=== PATIENT | male | born 2000 | race Caucasian/White ===

== ENCOUNTER 2019-05-27 19:01 | Emergency (ER) | payer OTHER ==
[2019-05-27 22:29] LABS: Hematocrit 40 % (42-52); Hemoglobin 13.6 g/dL (14.0-18.0); Mean Corpuscular HGB Conc 34 g/dL (31-36); Mean Corpuscular Hemoglobin 30 pg (27-31); Mean Corpuscular Volume 88 fL (80-94); Mean Platelet Volume 8.3 fL (7.4-10.4); Platelet Count 239 10^3/uL (150-450); Red Blood Count 4.59 10^6 /uL (4.18-5.48); Red Cell Distribution Width 13 % (10-15)
[2019-05-27 22:44] LABS: Albumin 4.7 g/dL (3.2-5.2); Albumin/Globulin Ratio 1.4 (1-3); BUN/Creatinine Ratio 14.9 (8-20); C Reactive Protein 28.53 mg/L (<8.01); Calcium 9.9 mg/dL (8.6-10.3); EGFR African American 125.1 (>60); EGFR Non-African American 103.4 (>60); Globulin 3.4 g/dL (2-4); Magnesium 2.2 mg/dL (1.9-2.7); Potassium 4.2 mmol/L (3.5-5.0); Total Bilirubin 0.6 mg/dL (0.2-1.0); Total Protein 8.1 g/dL (6.4-8.9)
[2019-05-27 22:47] LABS: ABS Lymphocytes 2.5 10^3/ul (1.0-4.8); ABS Monocytes 1.7 10^3/ul (0-0.8); ABS Neutrophils 11.8 10^3/ul (1.5-7.7); Eosinophil % 0.2 %; Lymphocyte % 15.4 %
[2019-05-27 22:51] LABS: Rapid Strep Molecular Negative (Negative)
[2019-05-27 23:05] LABS: TSH (Thyroid Stimulating Horm) 1.65 mcIU/mL (0.34-5.60)
[2019-05-27] MEDS ORDERED: Ibuprofen TAB* 600 MG PO ONE (23:11)
--- NOTE | 2019-05-27 23:38 | ED ---
Complex/Multi-Sys Presentation - HPI Summary HPI Summary: 18-year-old male presents with fatigue today. He states that he has had no energy. He did have a fever. Admits to sore throat. Has history of sinus infections and is waiting for ENT to get cultures back to start on antibiotics. He admits to worsening sinus pressure. denies any chest pain or shortness of breath. No cough. He states that all of his muscle aches. He did take some Tylenol prior to arrival. Denies any bowel pain. No rash. - History Of Current Complaint Chief Complaint: EDGeneral Time Seen by Provider: 05/27/19 21:56 - Allergies/Home Medications Allergies/Adverse Reactions: Allergies Allergy/AdvReac Type Severity Reaction Status Date / Time grass pollen Allergy Intermediate Eyes Verified 05/27/19 19:07 Itchy/Swollen/Red/Watery PMH/Surg Hx/FS Hx/Imm Hx Endocrine/Hematology History: Denies: Hx Diabetes Cardiovascular History: Denies: Hx Hypertension, Hx Pacemaker/ICD Sensory History: Denies: Hx Hearing Aid Psychiatric History: Denies: Hx Panic Disorder - Surgical History Surgery Procedure, Year, and Place: NOSE CAUTERIZATION A CHILD Infectious Disease History: No Infectious Disease History: Denies: Traveled Outside the [place] in Last 30 Days - Family History Known Family History: Positive: Non-Contributory - Social History Alcohol Use: Rare Substance Use Type: Reports: None Smoking Status (MU): Never Smoked Tobacco Review of Systems Positive: Fever, Chills, Fatigue Positive: Sore Throat, Nasal Discharge Negative: Chest Pain Negative: Shortness Of Breath, Cough Negative: Abdominal Pain Negative: dysuria All Other Systems Reviewed And Are Negative: Yes Physical Exam Triage Information Reviewed: Yes Vital Signs On Initial Exam: Initial Vitals Temp Pulse Resp BP Pulse Ox 100.1 F 78 15 123/74 100 05/27/19 19:04 05/27/19 19:04 05/27/19 19:04 05/27/19 19:04 05/27/19 19:04 Vital Signs Reviewed: Yes Appearance: Positive: Well-Appearing Skin: Positive: Warm, Dry Head/Face: Positive: Normal Head/Face Inspection Eyes: Positive: Normal, EOMI, PAULINO, Conjunctiva Clear ENT: Positive: Pharyngeal erythema, TMs normal, Tonsillar swelling, Sinus tenderness, Uvula midline, Other - soft palate symmetric. Negative: Tonsillar exudate, Trismus, Muffled voice Neck: Positive: Supple, Nontender, No Lymphadenopathy Respiratory/Lung Sounds: Positive: Clear to Auscultation, Breath Sounds Present Cardiovascular: Positive: Normal, RRR Abdomen Description: Positive: Nontender, Soft Bowel Sounds: Positive: Present Musculoskeletal: Positive: Normal Neurological: Positive: Normal Psychiatric: Positive: Normal Diagnostics - Vital Signs Vital Signs Temp Pulse Resp BP Pulse Ox 05/27/19 23:00 80 99 05/27/19 22:58 80 116/71 99 05/27/19 22:29 70 116/71 100 05/27/19 22:00 91 98 05/27/19 21:58 79 136/78 99 05/27/19 19:04 100.1 F 78 15 123/74 100 - Laboratory Lab Results: Lab Results 05/27/19 05/27/19 05/27/19 Range/Units 22:21 22:21 22:30 WBC 16.0 H (3.5-10.8) 10^3/uL RBC 4.59 (4.18-5.48) 10^6 /uL Hgb 13.6 L (14.0-18.0) g/dL Hct 40 L (42-52) % MCV 88 (80-94) fL MCH 30 (27-31) pg MCHC 34 (31-36) g/dL RDW 13 (10-15) % Plt Count 239 (150-450) 10^3/uL MPV 8.3 (7.4-10.4) fL Neut % (Auto) 73.4 % Lymph % (Auto) 15.4 % Hooker % (Auto) 10.8 % Eos % (Auto) 0.2 % Baso % (Auto) 0.2 % Absolute Neuts (auto) 11.8 H (1.5-7.7) 10^3/ul Absolute Lymphs (auto) 2.5 (1.0-4.8) 10^3/ul Absolute Monos (auto) 1.7 H (0-0.8) 10^3/ul Absolute Eos (auto) 0.0 (0-0.6) 10^3/ul Absolute Basos (auto) 0.0 (0-0.2) 10^3/ul Absolute Nucleated RBC 0.0 10^3/ul Nucleated RBC % 0.0 Sodium 136 (135-145) mmol/L Potassium 4.2 (3.5-5.0) mmol/L Chloride 102 (101-111) mmol/L Carbon Dioxide 29 (22-32) mmol/L Anion Gap 5 (2-11) mmol/L BUN 14 (6-24) mg/dL Creatinine 0.94 (0.67-1.17) mg/dL Est GFR ( Amer) 125.1 (>60) Est GFR (Non-Af Amer) 103.4 (>60) BUN/Creatinine Ratio 14.9 (8-20) Glucose 95 (70-100) mg/dL Calcium 9.9 (8.6-10.3) mg/dL Magnesium 2.2 (1.9-2.7) mg/dL Total Bilirubin 0.60 (0.2-1.0) mg/dL AST 10 L (13-39) U/L ALT 12 (7-52) U/L Alkaline Phosphatase 58 (34-104) U/L C-Reactive Protein 28.53 H (<8.01) mg/L Total Protein 8.1 (6.4-8.9) g/dL Albumin 4.7 (3.2-5.2) g/dL Globulin 3.4 (2-4) g/dL Albumin/Globulin Ratio 1.4 (1-3) TSH 1.65 (0.34-5.60) mcIU/mL Monoscreen Negative (Negative) Group A Strep Rapid Negative (Negative) Result Diagrams: 05/27/19 22:21 05/27/19 22:21 Lab Statement: Any lab studies that have been ordered have been reviewed, and results considered in the medical decision making process. - Radiology chest Radiology Interpretation Completed By: ED Physician Summary of Radiographic Findings: no pneumonia Complex Multi-Symp Course/Dx Course Of Treatment: 18-year-old male presents with fatigue today. He states that he has had no energy. He did have a fever. Admits to sore throat. Has history of sinus infections and is waiting for ENT to get cultures back to start on antibiotics. He admits to worsening sinus pressure. denies any chest pain or shortness of breath. No cough. He states that all of his muscle aches. He did take some Tylenol prior to arrival. Denies any bowel pain. No rash. On exam pharynx erythematous. Sinus tenderness noted. Lungs clear auscultation. Abdomen soft nontender. wbc 16. Monospot negative. Strep negative. Chest x-ray read by me as normal. Discussed likely a viral illness. patient declined IV fluids. With worsening sinus congestion and history sinus infection will start on Augmentin and ENT can change antibiotic as needed. told take Tylenol or ibuprofen for fever. Patient understands agrees with plan. - Diagnoses Differential Diagnoses/HQI/PQRI: Metabolic Abnormality, Other - mono, pneumonia Provider Diagnoses: Fatigue, Sinusitis, Fever Discharge - Sign-Out/Discharge Documenting (check all that apply): Patient Departure Patient Received Moderate/Deep Sedation with Procedure: No - Discharge Plan Condition: Good Disposition: HOME Prescriptions: Amoxicillin/Clavulanate TAB* [Augmentin TAB 875*] 875 mg PO BID #19 tab Patient Education Materials: Sinusitis (ED) Referrals: Chun Berman DO [Primary Care Provider] - Additional Instructions: Take antibiotic twice a day for 10 days Use saline spray in nose as much as needed take tyenlol or ibuprofen for fever every 6 hours for fever Follow up with primary care physician Return to ED with any new or worsening symptoms - Billing Disposition and Condition Condition: GOOD Disposition: Home
[2019-05-27] MEDS ORDERED: Amoxicillin/Clavulanate TAB* 500 MG PO ONE (23:43)
[2019-05-27] MEDS ORDERED: Amoxicillin/Clavulanate TAB* 875 MG PO ONE (23:44)
[2019-05-28 00:13] VITALS: BP 132/77
[2019-05-29 12:12] LABS: EBV Capsid Ag IgG Ab Positive (Negative); EBV Capsid Ag IgM Ab Negative (Negative); Epstein-Barr Nuclear Antigen Positive (Negative)
== END 2019-05-28 00:10 | disposition home or self-care (01) ==
LOC: ED 19:01
DX: R53.83 Other fatigue (principal); J32.9 Chronic sinusitis, unspecified; R50.9 Fever, unspecified; J02.9 Acute pharyngitis, unspecified
CPT/HCPCS: 36415; 71046; 80053; 83735; 84443; 85025; 86140; 86308; 86618; 86664; 86665; 87651; 99283; A9270-GY

== ENCOUNTER 2019-11-09 10:44 | Day surgery (SDC) | payer OTHER ==
[~2019-11-09 10:44] MED LIST: Buffered Lidocaine 1% SYRIN* 1 ML/SYRINGE INTRADERM ONE; Famotidine IV* 10 MG/ML 2 ML (20 mg) IV ONE; Lactated Ringers 1000 ML Bag* 1,000 ML IV SCH
[2019-11-09] MEDS ORDERED: Buffered Lidocaine 1% SYRIN* 1 ML/SYRINGE INTRADERM ONE (11:56)
[2019-11-09] MEDS ORDERED: Famotidine IV* 10 MG/ML 2 ML (20 mg) ONE (11:56)
[2019-11-09] MEDS ORDERED: Dexamethasone IV* 4 MG/ML 1 ML (4 MG) ONE (13:56)
[2019-11-09] MEDS ORDERED: Midazolam* 1 MG/ML 5 ML VIAL (5 MG) ONE (13:56)
[2019-11-09] MEDS ORDERED: Lidocaine 2% PF * 5 ML VIAL ONE (13:56)
[2019-11-09] MEDS ORDERED: Ondansetron INJ* 2 MG/ML VIAL ONE (13:56)
[2019-11-09] MEDS ORDERED: Propofol* 10 MG/ML 20 ML BTL ONE (13:56)
[2019-11-09] MEDS ORDERED: fentaNYL* 50 MCG/ML 2 ML VIAL (100 MCG VIAL) ONE (13:56)
[2019-11-09] MEDS ORDERED: Lidocaine 4% TOPICAL* 50 ML TOP.SOLN ONE (14:04)
[2019-11-09] MEDS ORDERED: Oxymetazoline 0.05% NASAL SPR* 15 ML BTL ONE ×2 (14:04→14:24)
[2019-11-09] MEDS ORDERED: Lidocaine 1% w EPI 1:100,000* MDV 20 ML VIAL ONE (14:04)
[2019-11-09] MEDS ORDERED: Bacitracin OINTMENT* 0.5% 0.5 oz TUBE ONE (14:04)
[2019-11-09] MEDS ORDERED: fentaNYL* 50 MCG/ML 2 ML VIAL (100 MCG VIAL) IV PRN (14:15)
[2019-11-09] MEDS ORDERED: Naloxone* 0.4 MG/ML 1 ML VIAL IV PRN (14:15)
[2019-11-09] MEDS ORDERED: Ondansetron INJ* 2 MG/ML VIAL IV PRN (14:15)
[2019-11-09] MEDS ORDERED: EPHEDrine (Pressors)* 50 MG/ML VIAL ONE (15:00)
[2019-11-09] MEDS ORDERED: Gelfoam 12-7 ADSORBABL SPONGE ONE (16:10)
[2019-11-09] MEDS ORDERED: Triamcinolone Acetonide* 40 MG/ML 1 ML VIAL ONE (16:10)
[2019-11-09 17:19] VITALS: BP 125/76
--- NOTE | 2019-11-10 01:36 | OP ---
DATE OF OPERATION: 11/09/19 - [facility] DATE OF : 89 SURGEON: Arturo Forbes MD SPECIAL EDUCATION COORDINATOR: None. ANESTHESIA: General. PRE-OP DIAGNOSIS: Chronic sinusitis. POST-OP DIAGNOSIS: Chronic sinusitis. OPERATIVE PROCEDURE: Bilateral endoscopic sinus surgery. ESTIMATED BLOOD LOSS: Less than 40 mL. SPECIMENS: Right and left sinus contents. INDICATIONS: This is a 18-year-old male who has had medically refractory chronic sinusitis for several months. He presented today for elective surgery. DESCRIPTION OF PROCEDURE: The patient was brought to the operating room. General anesthesia was induced and oral endotracheal tube was placed. The patient was draped. A time-out was performed. The [employer] Navigation System was registered. Procedure was done on the left side. Initial attempts to pass a guidewire into the left frontal sinus for balloon dilatation were unsuccessful. At that point, an uncinectomy was performed. The maxillary sinus was then opened by cannulating the natural ostium of the ball-tip probe and then utilizing a combination of thru-cutting instrumentation and the microdebrider to enlarge the enterostomy. An anterior ethmoidectomy was then performed using a combination of angled the thru- cutting forceps and the microdebrider. The ground lamella was then perforated and posterior ethmoid air cells were partially exonerated. Attention was then turned into the right nasal cavity. On this side, the uncinate was removed. The natural ostium of the maxillary sinus was cannulated. Its ostium was enlarged with microdebrider. The ethmoid air cells anteriorly were then exonerated using the thru-cutting forceps and the microdebrider and the ground lamella was perforated , allowing partial exoneration on the posterior ethmoid air cells. The additional attempts were made to at that point cannulate the left frontal sinus with Acclarent balloon which were unsuccessful. Ultimately, the frontal sinus outflow tract was explored with an olive tip suction under navigation and inspissated secretions were removed from this region. Stammberger Sinu-Foam gel was then placed into both nasal cavities and the the patient was extubated and delivered to the PACU in stable condition. [id number]/[facility] #: [id number] [facility] CENTERBetsy
== END 2019-11-09 17:55 | disposition home or self-care (01) ==
LOC: OR 10:44
PROVIDERS: ATTEND Otolaryngology
DX: J32.0 Chronic maxillary sinusitis (principal); J32.2 Chronic ethmoidal sinusitis; J30.89 Other allergic rhinitis; R04.0 Epistaxis
CPT/HCPCS: 87070; 87073; 87077; 87186; 87205; 88305; A9270-GY; J1100; J2250; J2405; J2704; J3010; J3301